=== PATIENT | male | born 1960 | race Caucasian/White ===

== ENCOUNTER 2017-10-08 11:12 | Day surgery (SDC) | payer BC, OTHER ==
[2017-09-23 14:38] VITALS: BMI 25.0
--- NOTE | 2017-10-04 12:34 | HP ---
Satellite [facility] - Chief Complaint Chief Complaint: right knee pain - Past Medical History Allergies/Adverse Reactions: Allergies Allergy/AdvReac Type Severity Reaction Status Date / Time No Known Drug Allergies Allergy Verified 06/26/16 12:12 - Current Medications Current Medications: Home Medications Medication Instructions Recorded Ferrous Sulfate 325 mg PO DAILY 06/26/16 Satellite Physical Exam - Physical Examination General Appearance: Well Nourished, Well Developed, Alert & Oriented x3 ENT: Clear Lung: Normal air movement Heart: Regular rate & rhythm Extremities: Other (right knee- + swelling, + ttp ,decr rom ,nvi xrays show grade 4 medial compartment djd) Neurological: Intact, Alert, Oriented Satellite Impression/Plan - Impression/Plan Impression: right knee medial djd Operative Procedure: right medial nicolas ukr Date to be Performed: 10/08/17
[2017-10-08] MEDS ORDERED: ROPIVICAINE 0.2%/MORPH PF/KETOROLAC - 51ML DISP.SYRINGE IA ONE ×2 (11:24→15:45)
[2017-10-08] MEDS ORDERED: CELECOXIB 200 MG CAPSULE PO ONE (11:24)
[2017-10-08] MEDS ORDERED: CEFAZOLIN 1 GM/D5W 1 GRAM/50 ML BAG IVPB ONE (11:24)
[2017-10-08] MEDS ORDERED: GABAPENTIN 300 MG CAPSULE (FP) PO ONE (11:24)
[2017-10-08] MEDS ORDERED: TRANEXAMIC ACID 1000 MG/10 ML VIAL IVPUSH ONE (11:24)
[2017-10-08] MEDS ORDERED: oxyCODONE HCL 10 MG SUSTAINED ACTING TABLET PO ONE (11:24)
[2017-10-08] MEDS ORDERED: THROMBIN (BOVINE) 5,000 UNIT VIAL TP ONE ×2 (13:06→15:40)
[2017-10-08] MEDS ORDERED: ceFAZolin SODIUM 1 GM VIAL ONE ×2 (13:06→13:44)
[2017-10-08] MEDS ORDERED: GELATIN, ABSORBABLE 100 EACH SPONGE TP ONE (13:07)
[2017-10-08] MEDS ORDERED: ROPIVACAINE HCL 0.5% 30ML VIAL ONE (13:22)
[2017-10-08] MEDS ORDERED: DEXAMETHASONE SOD PHOSPHATE/PF 10 MG/ML SDV ONE (13:22)
[2017-10-08] MEDS ORDERED: MIDAZOLAM HCL 2 MG/2 ML SINGLE DOSE VIAL ONE ×2 (13:23→14:28)
[2017-10-08] MEDS ORDERED: TRANEXAMIC ACID 1000 MG/10 ML VIAL ONE ×2 (13:44→15:40)
[2017-10-08] MEDS ORDERED: PROPOFOL 20 ML ONE (13:50)
[2017-10-08] MEDS ORDERED: ceFAZolin SODIUM 1 GM VIAL IVPB ONE ×2 (15:42→15:45)
--- NOTE | 2017-10-08 16:05 | OP ---
Operative Note - Note: Operative Date: 10/08/17 Pre-Operative Diagnosis: right knee medial OA Operation: right knee Makoplasty/Partial Knee replacement Implants: [place] Mirza: Tibia 6, Femur 5, Poly 8mm Surgeon: Rodri Bonilla Ancillary Services Manager Therapy: Dion Amin Anesthesiologist/[employer] TECHNICIAN: Lauri Saucedo Anesthesia: Spinal, MAC Specimens Removed: bone shavings Estimated Blood Loss (mls): 75 Drains, Volume Out (mls): 0 Blood Volume Replaced (mls): 0 Fluid Volume Replaced (mls): 1,000 Operative Report Dictated: Yes
[2017-10-08] MEDS ORDERED: ONDANSETRON 4 MG/2 ML VIAL IVPUSH PRN ×2 (16:09→16:38)
[2017-10-08] MEDS ORDERED: MAG HYDROX/AL HYDROX/SIMETH 30 ML UNIT-DOSE CUP PO PRN (16:09)
[2017-10-08] MEDS ORDERED: LACTATED RINGERS SOLUTION 1,000 ML IV SCH ×2 (16:15→16:45)
[2017-10-08] MEDS ORDERED: oxyCODONE HCL 5 MG TABLET PO PRN ×2 (16:38)
[2017-10-08] MEDS ORDERED: PROMETHAZINE HCL 25 MG/1 ML VIAL IVPB PRN (16:38)
[2017-10-08] MEDS ORDERED: ACETAMINOPHEN 325 MG TABLET (FP) ONE (17:00)
[2017-10-08] MEDS: ACETAMINOPHEN 325 MG TABLET (FP) PO SCH ×3 (17:00→22:19)
[2017-10-08] MEDS: CEFAZOLIN 2 GM/D5W 2 GM/50 ML ML IVPB SCH (22:18)
[2017-10-08] MEDS: GABAPENTIN 300 MG CAPSULE (FP) PO SCH (22:19)
[2017-10-08] MEDS: SENNOSIDES/DOCUSATE COMBO (SENNA PLUS) TABLET (UD) PO SCH (22:19)
[2017-10-08 22:50] VITALS: BP 103/64; PULSE 91; TEMP 98.5
[2017-10-09] MEDS: CEFAZOLIN 2 GM/D5W 2 GM/50 ML ML IVPB SCH (04:25)
[2017-10-09] MEDS: ACETAMINOPHEN 325 MG TABLET (FP) PO SCH ×2 (04:26→10:53)
[2017-10-09] MEDS ORDERED: CEFAZOLIN 2 GM/D5W 2 GM/50 ML ML IVPB ONE (06:00)
[2017-10-09] MEDS ORDERED: LACTATED RINGERS SOLUTION 1,000 ML IV SCH (06:00)
[2017-10-09] MEDS ORDERED: ASPIRIN 325 MG TABLET PO SCH (08:00)
[2017-10-09] MEDS ORDERED: PT OWN MED DRAWER 7, Y5N ONE (09:08)
--- NOTE | 2017-10-09 09:08 | PN ---
Progress Note (short form) - Note Progress Note: Ortho Pt seen and examined s/p right medial nicolas ukr pod #1 Selected Entries 10/08/17 22:00 Temperature 98.5 F Pulse Rate 91 H Respiratory 18 Rate Blood Pressure 103/64 dressing c/d/i, rom 0-100, calf soft, nt nvi a/p PT dvt ppx pain control d/c home today f/u in 1 week
[2017-10-09] MEDS: GABAPENTIN 300 MG CAPSULE (FP) PO SCH (09:10)
[2017-10-09] MEDS: SENNOSIDES/DOCUSATE COMBO (SENNA PLUS) TABLET (UD) PO SCH (09:10)
--- NOTE | 2017-10-09 09:21 | DS ---
Physical Examination Vital Signs: Vital Signs Temperature 98.5 F 10/08/17 22:00 Pulse Rate 91 H 10/08/17 22:00 Respiratory Rate 18 10/09/17 07:43 Blood Pressure 103/64 10/08/17 22:00 O2 Sat by Pulse Oximetry (%) 93 L 10/08/17 22:00 Discharge Summary Reason For Visit: OSTEOARTHRITIS Procedures: Principal: s/p right medial nicolas ukr Hospital Course: admitted for elective right medial nicolas ukr, uneventful post-op, stable for d/c Condition: Good - Instructions Referrals: Dion Amin MD [Staff Physician] - Disposition: VNS/HOME HEALTH CARE - Home Medications Comprehensive Discharge Medication List: Ambulatory Orders Ferrous Sulfate 325 mg PO DAILY 06/26/16 Aspirin [ASA -] 325 mg PO DAILY@0800 tablet 10/08/17 Oxycodone HCl/Acetaminophen [Percocet 5-325 mg Tablet] 1 - 2 tab PO Q6H #50 tab MDD 8 10/08/17
--- NOTE | 2017-10-09 09:52 | PN ---
Progress Note (short form) - Note Progress Note: ANESTHESIOLOGY POST-OP CHECK 57M s/p right medial knee replacement under spinal anesthesia and PNB, POD #1. No acute complaints. Pain 0/10 and tolerable. Denies N/V currently. Ambulating and voiding. Vital Signs Temperature 98.5 F 10/08/17 22:00 Pulse Rate 91 H 10/08/17 22:00 Respiratory Rate 18 10/09/17 07:43 Blood Pressure 103/64 10/08/17 22:00 O2 Sat by Pulse Oximetry (%) 93 L 10/08/17 22:00 Active Medications Acetaminophen (Tylenol -) 650 mg PO Q6H [facility] Stop: 10/11/17 16:44 Last Admin: 10/09/17 04:26 Dose: 650 mg Al Hydroxide/Mg Hydroxide (Mylanta Oral Suspension -) 30 ml PO Q4H PRN PRN Reason: DYSPEPSIA Aspirin (Asa -) 325 mg PO DAILY@0800 [facility] Last Admin: 10/09/17 08:30 Dose: 325 mg Ferrous Sulfate (Feosol -) 325 mg PO DAILY [facility] Last Admin: 10/09/17 09:10 Dose: 325 mg Gabapentin (Neurontin -) 300 mg PO BID [facility] Last Admin: 10/09/17 09:10 Dose: 300 mg Lactated Ringer's (Lactated Ringers Solution) 1,000 mls @ 125 mls/hr IV ASDIR [facility] Multivitamins/Minerals/Vitamin C (Tab-A-Vit -) 1 tab PO DAILY [facility] Last Admin: 10/09/17 09:10 Dose: 1 tab Oxycodone HCl (Roxicodone -) 10 mg PO Q3H PRN PRN Reason: PAIN LEVEL 6-10 Oxycodone HCl (Roxicodone -) 5 mg PO Q3H PRN PRN Reason: PAIN LEVEL 1-5 Pantoprazole Sodium (Protonix -) 40 mg PO DAILY [facility] Last Admin: 10/09/17 09:10 Dose: 40 mg Senna/Docusate Sodium (Pericolace -) 1 tablet PO BID [facility] Last Admin: 10/09/17 09:10 Dose: 1 tablet Gen: Awake, alert No apparent anesthesia complications. Pain controlled. Continue management as per primary team.
[2017-10-09] MEDS ORDERED: PANTOPRAZOLE 40 MG TABLET (FP) PO SCH (10:00)
[2017-10-09] MEDS ORDERED: FERROUS SO4 325 MG TABLET (FP) PO SCH (10:00)
[2017-10-09] MEDS ORDERED: MULTIVITAMINS (DAILY MVI) TABLET (FP) PO SCH (10:00)
== END 2017-10-09 12:30 | disposition home health service (06) ==
LOC: FASU 11:12 → FM/S 18:07 → FASU 10-09 12:30
PROVIDERS: ATTEND Orthopaedic Surgery
PROC: 8E0YXBZ Computer Assisted Procedure of Lower Extremity (ICD-10-PCS; 2017-10-08)
PROC: 8E0Y0CZ Robotic Assisted Procedure of Lower Extremity, Open Approach (ICD-10-PCS; 2017-10-08)
PROC: 0SRC0L9 Replacement of Right Knee Joint with Medial Unicondylar Synthetic Substitute, Cemented, Open Approach (ICD-10-PCS; principal; 2017-10-08 14:00)
DX: M17.11 Unilateral primary osteoarthritis, right knee (principal)
CPT/HCPCS: 20985; 27446; C1776; S2900; 73560-TC-RT-FY; 97116-GP; 97162-GP